=== PATIENT | female | born 1990 | race Caucasian/White ===

== ENCOUNTER → 2016-04-28 | Outpatient (CLI) | payer SELFPAY ==
[~2016-04-28] MED LIST: AMOXICILLIN 50500 MG PO; DOXYCYCLINE 10100 MG PO; MACROBID 1100 MG/CAP PO; NORCO 325 MG-51 TAB PO; PYRIDIUM200 M1 PO
== END ==
LOC: COL.RAD 17:30
DX: R05 Cough (principal); R50.9 Fever, unspecified

== ENCOUNTER 2016-06-17 15:09 | Emergency (ER) | payer SELFPAY ==
[~2016-06-17] VITALS: Ht 165.1 cm; Wt 86.4 kg
[~2016-06-17 15:09] MED LIST changes: -DOXYCYCLINE 10100 MG PO
[2016-06-17 15:11] VITALS: BP 140/76; TEMP 98.6
[2016-06-17 15:51] LABS: PH 5 (5-8); SQUAMOUS EPITHELIAL 0-2 /hpf; URINE APPEARANCE Clear; URINE BACTERIA Rare /hpf; URINE BILIRUBIN Negative (NEGATIVE); URINE BLOOD Negative (NEGATIVE); URINE COLOR Yellow; URINE GLUCOSE Negative (NEGATIVE); URINE KETONE Negative (NEGATIVE); URINE RBC 0-2 /hpf; URINE UROBILINOGEN Negative (NEGATIVE); URINE WBC 0-2 /hpf
[2016-06-17] MEDS ORDERED: DOXYCYCLINE 10100 MG PO (16:44)
[2016-06-17 17:12] VITALS: PULSE 67
[2016-06-17 17:49] LABS: CHLAMYDIA/TRACH by PCR Female NOT DETECTED; NEISSERIA GON by PCR Female NOT DETECTED
== END 2016-06-17 17:13 | disposition home or self-care (01) ==
LOC: COL.ER 15:09
PROVIDERS: Nurse Practitioner
DX: N73.9 Female pelvic inflammatory disease, unspecified (principal); Z97.5 Presence of (intrauterine) contraceptive device
CPT/HCPCS: J0696

== ENCOUNTER 2019-04-16 15:19 | Emergency (ER) | payer MEDICAID ==
[~2019-04-16] VITALS: Ht 165.1 cm; Wt 95.5 kg
[~2019-04-16 15:19] MED LIST changes: +DOXYCYCLINE 10100 MG PO
[2019-04-16 15:28] VITALS: BP 134/74; TEMP 98.5
[2019-04-16] MEDS ORDERED: PRENATAL TABLET PO (15:31)
[2019-04-16] MEDS ORDERED: ZITHROMAX Z PA250 MG PO (17:11)
[2019-04-16 17:21] VITALS: PULSE 90
== END 2019-04-16 17:21 | disposition home or self-care (01) ==
LOC: COL.ER 15:19
DX: O99.512 Diseases of the respiratory system complicating pregnancy, second trimester (principal); J20.9 Acute bronchitis, unspecified; Z3A.22 22 weeks gestation of pregnancy

== ENCOUNTER 2019-04-29 12:27 | Emergency (ER) | payer MEDICAID ==
[~2019-04-29] VITALS: Ht 165.1 cm; Wt 97.7 kg
[~2019-04-29 12:27] MED LIST changes: +PRENATAL TABLET PO; +ZITHROMAX Z PA250 MG PO
[2019-04-29 12:31] VITALS: BP 135/82; TEMP 98.2
[2019-04-29 13:52] LABS: COLLECTION METHOD CLEAN CATCH
[2019-04-29 13:58] LABS: BASO % 0.2 % (0.0-2.0); EOS # 0.1 (0.0-0.7); EOS % 0.8 % (0-4.0); GRAN # 9.8 (1.4-6.5); HEMOGLOBIN 11.5 g/dl (12.5-16.0); LYMPH # 1.8 (1.2-3.4); LYMPH % 14.4 % (20.0-51.0); MEAN CELL VOLUME 85 fl (80.0-100.0); MEAN CORPUSCULAR HEMOGLOBIN 28 pg (27.0-31.0); MEAN CORPUSCULAR HGB CONC 32 g/dl (33.0-37.0); MEAN PLATELET VOLUME 10.6 fl (7.4-10.4); MONO # 0.7 (0.1-0.6); MONO % 5.6 % (1.7-9.3); PLATELET COUNT 259 K/mm3 (130-400); RED BLOOD COUNT 4.18 M/mm3 (4.10-5.30); REDCELL DISTRIBUTION WIDTH-CV 13.2 % (11.5-14.5)
[2019-04-29 14:00] LABS: HEMATOCRIT 35.6 % (37.0-47.0)
[2019-04-29 14:01] LABS: MUCOUS Present /lpf; PH 6 (5-8); SQUAMOUS EPITHELIAL 0-2 /hpf; URINE APPEARANCE Clear; URINE BACTERIA Rare /hpf; URINE BILIRUBIN Negative (NEGATIVE); URINE BLOOD 1+ (NEGATIVE); URINE COLOR Yellow; URINE GLUCOSE Negative (NEGATIVE); URINE KETONE Negative (NEGATIVE); URINE LEUKOCYTE ESTERASE Negative (NEGATIVE); URINE NITRATE Negative (NEGATIVE); URINE PROTEIN(semi-quant) Negative (NEGATIVE); URINE RBC 0-2 /hpf; URINE UROBILINOGEN Negative (NEGATIVE)
[2019-04-29 14:05] LABS: ALBUMIN 3.8 gm/dL (3.5-5.0); BILIRUBIN,TOTAL 0.3 mg/dL (0.0-1.0); CALCIUM 9.4 mg/dL (8.4-10.2); CREATININE, serum 0.41 (0.52-1.25); POTASSIUM 3.8 mmol/L (3.4-5.0); TOTAL PROTEIN 7.4 gm/dL (6.4-8.2)
[2019-04-29] MEDS ORDERED: CEPHALEXIN500 M1 PO (14:10)
[2019-04-29 14:51] VITALS: PULSE 73
== END 2019-04-29 14:51 | disposition home or self-care (01) ==
LOC: COL.ER 12:27
PROVIDERS: Emergency Medicine
DX: O44.12 Complete placenta previa with hemorrhage, second trimester (principal); O23.32 Infections of other parts of urinary tract in pregnancy, second trimester; R78.81 Bacteremia; Z3A.23 23 weeks gestation of pregnancy